=== PATIENT | female | born 1960 | race Caucasian/White ===

== ENCOUNTER → 2020-07-31 | Outpatient (CLI) | payer BC ==
--- NOTE | 2020-08-01 08:46 | XR ---
EXAMINATION TYPE: XR ankle complete LT DATE OF EXAM: 07/31/2020 COMPARISON: NONE HISTORY: Pain FINDINGS: Three views of the ankle demonstrate the ankle mortise to be intact and symmetric. The joint spaces are preserved. The osseous structures are intact. Soft tissue swelling laterally. Well-corticated b claudy density adjacent to the medial malleolus appears chronic and related to remote trauma. Thin linea r lucency at the distal margin of the lateral malleolus. IMPRESSION: 1. Findings suspicious for a tiny avulsion fracture distal margin of the fibula, lateral malleolus..
== END | disposition home or self-care (01) ==
LOC: RADXRYALE 16:01
PROVIDERS: ATTEND Internal Medicine
DX: M25.572 Pain in left ankle and joints of left foot (principal)

== ENCOUNTER → 2022-01-10 | Outpatient (CLI) | payer BC ==
--- NOTE | 2022-01-10 14:32 | US ---
EXAMINATION TYPE: US kidneys/renal and bladder DATE OF EXAM: 01/10/2022 COMPARISON: NONE CLINICAL HISTORY: R31.9 HEMATURIA. microscopic hematuria EXAM MEASUREMENTS: Right Kidney: 9.9 x 5.1 x 4.5 cm Left Kidney: 10.6 x 4.1 x 4.9 cm Right Kidney: medial anechoic lesion at hilum = 2.0 x 1.1 cm likely a small parapelvic cyst. Left Kidney: No hydronephrosis or masses seen Bladder: distended, anechoic Bilateral Jets seen There is no evidence for hydronephrosis at this point in time. No nephrolithiasis is seen. No joanna s are identified. The urinary bladder is anechoic. Bilateral ureteral jets are seen. IMPRESSION: No significant abnormality seen.
== END | disposition home or self-care (01) ==
LOC: RADUSWWP 13:31
PROVIDERS: ATTEND Internal Medicine
DX: R31.9 Hematuria, unspecified (principal)
CPT/HCPCS: 76770